=== PATIENT | female | born 1955 | race Hispanic/Latino ===

== ENCOUNTER 2017-05-22 06:37 | Day surgery (SDC) | payer MEDICARE ==
[2017-05-22] MEDS ORDERED: WATER FOR IRRIG STERILE IR ONE (07:20)
--- NOTE | 2017-05-22 08:03 | Anesthesia Day of Surgery ---
Anesthesia Day of Surgery - Day of Surgery Patient Examined: Yes Patient H&P Reviewed: Yes Patient is NPO: Yes Beta Blockers: No Cardiac Clearance: No Pulmonary Clearance: No
--- NOTE | 2017-05-22 08:04 | Anesthesia Consultation ---
Anesthesia Consult and Med Hx - Airway Anesthetic Teeth Evaluation: Good ROM Head & Neck: Adequate Mental/Hyoid Distance: Adequate Mallampati Class: Class III Intubation Access Assessment: Good - Pulmonary Exam CTA: Yes - Cardiac Exam Cardiac Exam: No Murmur - Pre-Operative Health Status ASA Pre-Surgery Classification: ASA3 Proposed Anesthetic Plan: MAC - Pulmonary Hx Smoking: No Hx Asthma: No Hx Respiratory Symptoms: No SOB: No COPD: No Home Oxygen Therapy: No Hx Pneumonia: No Hx Sleep Apnea: Yes - Cardiovascular System Hx Cardia Arrhythmia: No Hx Pacemaker: No Hx Internal Defibrillator: No Hx Valvular Heart Disease: No Hx Heart Murmur: No Hx Peripheral Vascular Disease: No - Central Nervous System Hx Neuromuscular Disorder: No Hx Seizures: No CVA: No Hx Psychiatric Problems: Yes - Gastrointestinal Hx Ulcer: No Hx Gastroesophageal Reflux Disease: Yes - Endocrine Hx Renal Disease: No Hx End Stage Renal Disease: No Hx Cirrhosis: No Hx Liver Disease: No Hx Insulin Dependent Diabetes: No Hx Non-Insulin Dependent Diabetes: No Hx Thyroid Disease: No Hx Hypothyroidism: Yes Hx Hyperthyroidism: No - Hematic Hx Anemia: No Hx Sickle Cell Disease: No - Other Systems Hx Alcohol Use: No Hx Substance Use: No Hx Cancer: No Hx Obesity: Yes
[2017-05-22] MEDS ORDERED: NACL 0.9% 1000 ML 1,000 ML IV SCH ×2 (09:00→10:00)
[2017-05-22] MEDS ORDERED: DIPRIVAN 10 MG/ML IV ONE ×2 (11:04→11:34)
--- NOTE | 2017-05-22 11:33 | Post Anesthesia Evaluation ---
- Post Anesthesia Evaluation Patient Participated: Yes Airway Patent: Yes Stable Respiratory Function: Yes Nausea/Vomiting: No Temp > 96.8F: Yes Pain Manageable: Yes Adequeate Hydration: Yes
[2017-05-22 11:38] VITALS: BP 121/52
== END 2017-05-22 06:38 | disposition home or self-care (01) ==
LOC: GIO 06:37
PROVIDERS: ATTEND Specialist
DX: K21.9 Gastro-esophageal reflux disease without esophagitis (principal); K44.9 Diaphragmatic hernia without obstruction or gangrene; G47.30 Sleep apnea, unspecified; E66.9 Obesity, unspecified; E66.01 Morbid (severe) obesity due to excess calories; Z90.49 Acquired absence of other specified parts of digestive tract; E07.9 Disorder of thyroid, unspecified; K58.9 Irritable bowel syndrome, unspecified; F32.9 Major depressive disorder, single episode, unspecified; M19.90 Unspecified osteoarthritis, unspecified site; E03.9 Hypothyroidism, unspecified; F41.9 Anxiety disorder, unspecified; Z90.710 Acquired absence of both cervix and uterus; Z98.890 Other specified postprocedural states; Z82.49 Family history of ischemic heart disease and other diseases of the circulatory system; Z80.9 Family history of malignant neoplasm, unspecified; Z79.899 Other long term (current) drug therapy; Z88.8 Allergy status to other drugs, medicaments and biological substances; Z68.41 Body mass index [BMI] 40.0-44.9, adult; M54.5 Low back pain; E78.5 Hyperlipidemia, unspecified; G47.33 Obstructive sleep apnea (adult) (pediatric)
CPT/HCPCS: 43235; 88305; 88342; J2704; J7030

== ENCOUNTER 2017-08-04 19:31 | Emergency (ER) | payer MEDICARE ==
[2017-08-04 20:36] LABS: Basophils # (Auto) 0.1 K/mm3 (0.0-0.1); Basophils % (Auto) 0.9 % (0.0-1.8); Eosinophils # (Auto) 0.3 K/mm3 (0.0-0.4); Eosinophils % (Auto) 3.8 % (0.0-4.3); Lymphocytes # (Auto) 2.5 K/mm3 (1.2-5.4); Lymphocytes % (Auto) 35.1 % (13.4-35.0); Mean Corpuscular HGB Conc 32 % (30-34); Mean Corpuscular Volume 76 fl (79-97); Monocytes # (Auto) 0.5 K/mm3 (0.0-0.8); Monocytes % (Auto) 7.4 % (0.0-7.3); Platelet Count 244 K/mm3 (140-440); Red Cell Distribution Width 13.9 % (13.2-15.2)
[2017-08-04 20:37] LABS: Mean Corpuscular Hemoglobin 24 pg (28-32)
[2017-08-04 20:42] LABS: Alanine Aminotransferase 13 units/L (7-56); Albumin 3.9 g/dL (3.9-5); BUN/Creatinine Ratio 16; Blood Urea Nitrogen 11 mg/dL (7-17); Calcium 9.1 mg/dL (8.4-10.2); Hemolysis Index 0; Lipase 27 units/L (13-60)
[2017-08-04 20:45] LABS: Bilirubin,Urine NEG (Negative); Blood,Urine NEG (Negative); Color,Urine Yellow (Yellow); Mucus,Urine FEW /HPF; Protein,Urine <15 mg/dL mg/dL (Negative); WBC,Urine < 1.0 /HPF (0.0-6.0)
[2017-08-04] MEDS ORDERED: MORPHINE IV ONE (22:14)
[2017-08-04] MEDS ORDERED: ZOFRAN IV ONE (22:14)
--- NOTE | 2017-08-04 22:20 | Emergency Department Report ---
ED Abdominal Pain HPI - General Chief Complaint: Abdominal Pain Stated Complaint: HERNIAS Time Seen by Provider: 08/04/17 21:59 Source: patient Mode of arrival: Ambulatory Limitations: No Limitations - History of Present Illness Initial Comments: 61-year-old female with a past medical history of GERD and multiple abdominal surgeries including breast surgery, appendectomy, cholecystectomy, 3/4 small bowel removal secondary to "blood clot in gangrene", hysterectomy, and gastric sleeve surgery presents to the Hospital complaining of right lower abdominal pain 2 week with nausea and constipation. Patient had a small bowel movement yesterday. Pain is rated 7/10 intensity, constant, worse with palpation, no alleviating. Pt is not currently taking any pain medication. Positive nausea with vomiting and mild dysuria reported. Patient states that Dr Bennett, her bariatric surgeonis awaiting insurance approval to repair her "hiatal" hernia and modify her gastric sleeve surgery. - Related Data Home Medications Medication Instructions Recorded Confirmed Last Taken Citalopram 20 mg PO DAILY 05/21/17 05/22/17 05/21/17 09:00 Furosemide 20 mg PO PRN PRN 05/21/17 05/21/17 Unknown Gabapentin 100 mg PO TID 05/21/17 05/22/17 05/21/17 21:00 Levothyroxine 112 mcg PO DAILY 05/21/17 05/22/17 05/22/17 06:00 NexIUM 40 mg PO DAILY 05/21/17 05/22/17 05/21/17 09:00 Pravastatin 20 mg PO DAILY 05/21/17 05/22/17 05/21/17 21:00 Xanax 0.25 mg PO PRN PRN 05/21/17 05/21/17 Unknown buPROPion 150 mg PO BID 05/21/17 05/22/17 05/21/17 21:00 Previous Rx's Medication Instructions Recorded Last Taken Type Lactulose [Kristalose] 20 gm PO QDAY #5 packet 08/05/17 Unknown Rx Allergies Allergy/AdvReac Type Severity Reaction Status Date / Time Penicillins Allergy Intermediate Unknown Verified 05/22/17 07:25 ED Review of Systems ROS: Stated complaint: HERNIAS Other details as noted in HPI Comment: All other systems reviewed and negative ED Past Medical Hx - Past Medical History Hx GERD: Yes Hx Liver Disease: No Hx Renal Disease: No Hx Sickle Cell Disease: No Hx Seizures: No Hx Asthma: No Hx COPD: No Additional medical history: Abdominal Hernias - Surgical History Hx Pacemaker: No Hx Internal Defibrillator: No Hx Cholecystectomy: Yes () Hx Appendectomy: Yes Hx Breast Surgery: Yes (2004) Additional Surgical History: Gastric Sleeve, Hysterectomy, 3/4 small bowel removal secondary to gangrene/blood clot as per patient - Social History Smoking Status: Never Smoker Substance Use Type: None - Medications Home Medications: Home Medications Medication Instructions Recorded Confirmed Last Taken Type Citalopram 20 mg PO DAILY 05/21/17 05/22/17 05/21/17 09:00 History Furosemide 20 mg PO PRN PRN 05/21/17 05/21/17 Unknown History Gabapentin 100 mg PO TID 05/21/17 05/22/17 05/21/17 21:00 History Levothyroxine 112 mcg PO DAILY 05/21/17 05/22/17 05/22/17 06:00 History NexIUM 40 mg PO DAILY 05/21/17 05/22/17 05/21/17 09:00 History Pravastatin 20 mg PO DAILY 05/21/17 05/22/17 05/21/17 21:00 History Xanax 0.25 mg PO PRN PRN 05/21/17 05/21/17 Unknown History buPROPion 150 mg PO BID 05/21/17 05/22/17 05/21/17 21:00 History Lactulose [Kristalose] 20 gm PO QDAY #5 packet 08/05/17 Unknown Rx ED Physical Exam - General Limitations: No Limitations - Other Other exam information: General: No limitations, patient is alert in no acute distress Head exam: Atraumatic, normocephalic Eyes exam: Normal appearance ENT: Moist mucous membrane, normal oropharynx Neck exam: Normal inspection, full range of motion Respiratory exam: Clear to auscultation bilateral, no wheezes, rales, crackles Cardiovascular: Normal rate and rhythm, normal heart sounds Abdomen: Soft, nondistended, also abdominal scars previous surgeries. Right mid and lower abdominal tenderness to palpation, with normal bowel sounds, no rebound, or guarding Extremity: Full range of motion normal inspection no deformity Back: Normal Inspection, full range of motion, no tenderness Neurologic: Alert, oriented x3, cranial nerves intact, no motor or sensory deficit Psychiatric: normal affect, normal mood Skin: Warm, dry, intact ED Course Vital Signs 08/04/17 08/04/17 08/04/17 19:30 22:37 22:45 Temperature 98.0 F Pulse Rate 56 L Respiratory 18 Rate Blood Pressure 149/61 147/61 O2 Sat by Pulse 99 99 99 Oximetry 08/04/17 08/04/17 08/04/17 23:00 23:15 23:30 Temperature Pulse Rate Respiratory Rate Blood Pressure 138/61 138/61 141/66 O2 Sat by Pulse 98 100 98 Oximetry 08/04/17 08/04/17 23:48 23:58 Temperature Pulse Rate Respiratory 20 Rate Blood Pressure O2 Sat by Pulse 98 98 Oximetry - Consultations Consultation #1: 08/05/17 02:15 case d/w Dr Maldonado, if pt can tolerate po rec laxatives and enema and outpatient f/u ED Medical Decision Making - Lab Data Result diagrams: 08/04/17 19:50 08/04/17 19:50 Lab Results 08/04/17 08/04/17 08/04/17 Range/Units 19:50 19:50 20:27 WBC 7.1 (4.5-11.0) K/mm3 RBC 5.40 H (3.65-5.03) M/mm3 Hgb 13.0 (10.1-14.3) gm/dl Hct 41.0 (30.3-42.9) % MCV 76 L (79-97) fl MCH 24 L (28-32) pg MCHC 32 (30-34) % RDW 13.9 (13.2-15.2) % Plt Count 244 (140-440) K/mm3 Lymph % (Auto) 35.1 H (13.4-35.0) % [place] % (Auto) 7.4 H (0.0-7.3) % Eos % (Auto) 3.8 (0.0-4.3) % Baso % (Auto) 0.9 (0.0-1.8) % Lymph # 2.5 (1.2-5.4) K/mm3 [place] # 0.5 (0.0-0.8) K/mm3 Eos # 0.3 (0.0-0.4) K/mm3 Baso # 0.1 (0.0-0.1) K/mm3 Seg Neutrophils % 52.8 (40.0-70.0) % Seg Neutrophils # 3.7 (1.8-7.7) K/mm3 Sodium 141 (137-145) mmol/L Potassium 5.1 H (3.6-5.0) mmol/L Chloride 103.0 (98-107) mmol/L Carbon Dioxide 26 (22-30) mmol/L Anion Gap 17 mmol/L BUN 11 (7-17) mg/dL Creatinine 0.7 (0.7-1.2) mg/dL Estimated GFR > 60 ml/min BUN/Creatinine Ratio 16 % Glucose 88 (65-100) mg/dL Calcium 9.1 (8.4-10.2) mg/dL Total Bilirubin 0.30 (0.1-1.2) mg/dL AST 17 (5-40) units/L ALT 13 (7-56) units/L Alkaline Phosphatase 132 H (35-129) units/L Total Protein 6.4 (6.3-8.2) g/dL Albumin 3.9 (3.9-5) g/dL Albumin/Globulin Ratio 1.6 % Lipase 27 (13-60) units/L Urine Color Yellow (Yellow) Urine Turbidity Clear (Clear) Urine pH 7.0 (5.0-7.0) Ur Specific [place] 1.017 (1.003-1.030) Urine Protein <15 mg/dl (Negative) mg/dL Urine Glucose (UA) Neg (Negative) mg/dL Urine Ketones Neg (Negative) mg/dL Urine Blood Neg (Negative) Urine Nitrite Neg (Negative) Urine Bilirubin Neg (Negative) Urine Urobilinogen 4.0 (<2.0) mg/dL Ur Leukocyte Esterase Neg (Negative) Urine WBC (Auto) < 1.0 (0.0-6.0) /HPF Urine RBC (Auto) 1.0 (0.0-6.0) /HPF U Epithel Cells (Auto) < 1.0 (0-13.0) /HPF Urine Mucus Few /HPF - Radiology Data Radiology results: report reviewed EXAM: CT ABDOMEN PELVIS W CON HISTORY: right lower pain, gastric bypass, appy, chol, hyst COMPARISON: None available. TECHNIQUE: Contiguous axial images were obtained. Additional sagittal and coronal reformatted images were obtained. Administration of IV contrast given per institution protocol. Images submitted for interpretation. Enteric contrast administered. FINDINGS: Mild linear atelectasis at the lung bases. Tiny hiatal hernia. Prior gastric sleeve procedure. Prior cholecystectomy. The common bile duct at the level the pancreatic head measures 6 millimeters within normal limits for patient's age. Homogeneous enhancement of the liver, spleen, pancreas. No adrenal mass. No solid renal lesion or hydronephrosis. Mild extrarenal pelves bilaterally. Aorta and IVC are normal in caliber. Mild calcification aorta. Urinary bladder is unremarkable. Uterus is surgically absent. Ovaries are not visualized and may also be surgically absent. Large and small bowel loops normal in caliber. The appendix is not visualized appears to be surgically absent. Moderate to large amount of stool in the colon. [id number] degenerative changes of the lumbar spine. Chronic appearing mild superior plate compression deformity at the L1 level. Bony pelvis is grossly intact. IMPRESSION: No focal inflammatory changes of the abdomen and pelvis. Moderate large amount of stool within the colon. Large and small bowel loops normal in caliber. The appendix is not visualized and appears to be surgically absent. No obstructive uropathy. Prior cholecystectomy and gastric sleeve procedure. No eliezer biliary dilatation. - Medical Decision Making Patient received a Fleet enema without output. Pt received po lactulose. Prior to CAT scan report patient received IV morphine and Zofran. - Differential Diagnosis obstruction, hernia, adhesions, UTI, bowel infection Critical Care Time: No Critical care attestation.: If time is entered above; I have spent that time in minutes in the direct care of this critically ill patient, excluding procedure time. ED Disposition Clinical Impression: Constipation, Hx of abdominal surgery, Hx of gastric bypass Disposition: DC-01 TO HOME OR SELFCARE Is pt being admited?: No Does the pt Need Aspirin: No Condition: Stable Instructions: Constipation (ED) Additional Instructions: Take the medication as prescribed. Return if symptoms worsen as indicated by the discharge instructions. Follow-up with your gastric bypass surgeon. Prescriptions: Lactulose [Kristalose] 20 gm PO QDAY #5 packet Referrals: NINO LAUREANO MD [Primary Care Provider] - 3-5 Days CLAUDIA BENNETT MD [Staff Physician] - 2-3 Days Time of Disposition: 03:08
--- NOTE | 2017-08-05 01:42 | Cat Scan Report ---
FINAL REPORT EXAM: CT ABDOMEN PELVIS W CON HISTORY: right lower pain, gastric bypass, appy, chol, hyst COMPARISON: None available. TECHNIQUE: Contiguous axial images were obtained. Additional sagittal and coronal reformatted images were obtained. Administration of IV contrast given per institution protocol. Images submitted for interpretation. Enteric contrast administered. FINDINGS: Mild linear atelectasis at the lung bases. Tiny hiatal hernia. Prior gastric sleeve procedure. Prior cholecystectomy. The common bile duct at the level the pancreatic head measures 6 millimeters within normal limits for patient's age. Homogeneous enhancement of the liver, spleen, pancreas. No adrenal mass. No solid renal lesion or hydronephrosis. Mild extrarenal pelves bilaterally. Aorta and IVC are normal in caliber. Mild calcification aorta. Urinary bladder is unremarkable. Uterus is surgically absent. Ovaries are not visualized and may also be surgically absent. Large and small bowel loops normal in caliber. The appendix is not visualized appears to be surgically absent. Moderate to large amount of stool in the colon. [id number] degenerative changes of the lumbar spine. Chronic appearing mild superior plate compression deformity at the L1 level. Bony pelvis is grossly intact. IMPRESSION: No focal inflammatory changes of the abdomen and pelvis. Moderate large amount of stool within the colon. Large and small bowel loops normal in caliber. The appendix is not visualized and appears to be surgically absent. No obstructive uropathy. Prior cholecystectomy and gastric sleeve procedure. No eliezer biliary dilatation.
[2017-08-05] MEDS ORDERED: CEPHULAC PO ONE (01:57)
[2017-08-05] MEDS ORDERED: FLEET MINERAL OIL PR ONE (02:04)
[2017-08-05 04:39] VITALS: BP 122/41
== END 2017-08-05 04:40 | disposition home or self-care (01) ==
LOC: ED 19:31
DX: K59.00 Constipation, unspecified (principal); K21.9 Gastro-esophageal reflux disease without esophagitis; Z90.710 Acquired absence of both cervix and uterus; Z90.49 Acquired absence of other specified parts of digestive tract; Z88.0 Allergy status to penicillin
CPT/HCPCS: 36415; 74177; 80053; 81001; 83690; 85025; 96374; 96375; 99284; J2270; J2405; Q9967

== ENCOUNTER 2017-10-30 07:00 | Inpatient (IN) | payer MEDICARE ==
--- NOTE | 2017-10-25 13:35 | Anesthesia Consultation ---
Anesthesia Consult and Med Hx Date of service: 10/25/17 - Airway Anesthetic Teeth Evaluation: Partials ROM Head & Neck: Adequate Mental/Hyoid Distance: Adequate Mallampati Class: Class II Intubation Access Assessment: Probably Good - Pulmonary Exam CTA: Yes - Cardiac Exam Cardiac Exam: RRR - Pre-Operative Health Status ASA Pre-Surgery Classification: ASA3 Proposed Anesthetic Plan: General - Pulmonary Hx Smoking: No Hx Asthma: No COPD: No Hx Sleep Apnea: Yes (CPAP 9cmH2O) - Cardiovascular System Hx Hypertension: No Hx Heart Attack/AMI: No Hx Cardia Arrhythmia: No Hx Pacemaker: No Hx Internal Defibrillator: No - Central Nervous System Hx Neuromuscular Disorder: No Hx Seizures: No CVA: No Hx Psychiatric Problems: Yes (anxiety/depression) - Gastrointestinal Hx Ulcer: No Hx Gastroesophageal Reflux Disease: Yes (symptoms improved significantly with nexium) - Endocrine Hx Renal Disease: No Hx Liver Disease: No Hx Insulin Dependent Diabetes: No Hx Hypothyroidism: Yes - Other Systems Hx Obesity: Yes - Additional Comments Anesthesia Medical History Comments: PMH previous gastric sleeve, GERD well controlled with nexium, CORAZON + CPAP, hypothyroidism, peripheral neuropathy presenting for revision of gastric sleeve. Pulmonary and cardiology clearance letters on chart however supporting study results pending. Cardiac, pulmonary, and lab studies from outside providers have been requested.
[~2017-10-30 07:00] MED LIST: APRESOLINE IV PRN; DILAUDID IV PRN; LACTATED RINGERS 1,000 ML IV SCH; LEVAQUIN 500MG/100ML 500 MG/100 ML BAG IV NR; LOVENOX SUB-Q NR; MYLICON PO PRN; NORCO PO PRN; VANCOMYCIN/NS 1 GM/250 ML 1 GM/250 ML BAG IV SCH; ZOFRAN IV PRN
[2017-10-30] MEDS ORDERED: TRANSDERM-SCOP TD NR (11:08)
[2017-10-30] MEDS: LACTATED RINGERS 1,000 ML IV SCH ×2 (11:15→22:00)
[2017-10-30] MEDS: VERSED IV NR ×2 (11:20→12:20)
[2017-10-30] MEDS: TRANSDERM-SCOP TD SCH ×2 (11:32→20:33)
[2017-10-30] MEDS ORDERED: DIPRIVAN 10 MG/ML IV ONE ×2 (11:57→13:15)
[2017-10-30] MEDS ORDERED: SUBLIMAZE ONE (11:57)
[2017-10-30] MEDS ORDERED: ZEMURON IV ONE ×2 (11:57→14:35)
[2017-10-30] MEDS ORDERED: XYLOCAINE MPF 2% ONE (11:57)
[2017-10-30] MEDS ORDERED: ZOFRAN ONE (11:57)
[2017-10-30] MEDS ORDERED: DECADRON ONE (11:57)
[2017-10-30] MEDS ORDERED: TORADOL ONE (11:57)
[2017-10-30] MEDS ORDERED: DILAUDID ONE (13:05)
[2017-10-30] MEDS ORDERED: MARCAINE-EPI 0.25%-1:200,000 INFILTRATI ONE (13:25)
[2017-10-30] MEDS ORDERED: XYLOCAINE 1% 20 mL ONE (13:25)
[2017-10-30] MEDS ORDERED: MARCAINE-EPI 0.5%-1:200,000 INFILTRATI ONE ×2 (13:27→14:35)
[2017-10-30] MEDS ORDERED: NACL 0.9% IR ONE (14:35)
[2017-10-30] MEDS ORDERED: NACL 0.9% 1000 ML IR ONE (14:35)
[2017-10-30] MEDS ORDERED: XYLOCAINE 1% 20 mL INFILTRATI ONE (14:35)
[2017-10-30] MEDS ORDERED: BLOXIVERZ ONE (15:03)
[2017-10-30] MEDS ORDERED: ROBINUL ONE ×2 (15:03)
--- NOTE | 2017-10-30 15:39 | Operative Report ---
Operative Report Operative Report: DATE OF PROCEDURE 10/30/17 PREOPERATIVE DIAGNOSES: 1. Symptomatic hiatal hernia 2. Gastritis 3. Morbid obesity status post band removal converted to sleeve. POSTOPERATIVE DIAGNOSES: same. SURGEON: Mono Bennett MD ELECTRICAL CONTROLS TECHNICIAN: uSri Monsivais MD, Moisés Silva CSA PROCEDURE: 1. Laparoscopic lysis of adhesions 2. Laparoscopic repair of hiatal hernia 3. Partial gastric resection 4. Imbrication of sleeve staple line. ANESTHESIA: General. ESTIMATED BLOOD LOSS: Less than 5 mL. COMPLICATIONS: None. SPECIMEN: Partial gastrectomy. FINDINGS: 1. Moderate hiatal hernia 2. Adhesions to anterior abdominal wall 3. Dilated mliy-fundus INDICATION FOR PROCEDURE: Patient is 61 year-old female status post laparoscopic removal of band converted to sleeve in 2016. She has had epigastric pain with gastritis and an EGD demonstrated a 6cm hiatal hernia with a slightly dilated sleeve. She was recommended repair of the hiatal hernia with possible re-sleeve. The risks, complications, and alternatives were explained to the patient, informed consent was obtained. PROCEDURE IN DETAIL: The patient was taken to the operating room where she was placed in the supine position. She was given preoperative antibiotics and DVT prophylaxis, and then prepped and draped in the usual sterile fashion. After a time-out was called, a stab incision was made in the LUQ and a veress needle was inserted with insufflation to 16 mmHg. An optiview 5mm trocar was inserted in the same incision. There was no injury at the site of the veress needle. Additional 5-mm ports were placed in the right and left lateral quadrants. Adhesiolysis was first performed of the anterior abdominal wall from her multiple prior open operations. After this, a 12mm umbilical port and epigastric 5mm port were placed and additional adhesions were taken down from the undersurface of the liver to expose her gastric sleeve. A liver retractor was inserted. The patient was then repositioned in steep reverse Trendelenburg. The right and left crura were skeletonized, accentuating a moderate hiatal hernia containing a portion of mily-fundus. Omental adhesions were cleared with a Ligasure from the mily-greater curvature, and then a partial gastric resection was performed of the enlarged mily-fundus with two mead stapler loads. The prior staple line of the sleeve was noted, anesthesia placed a 36F bougie for calibration, and then the staple line was imbricated with a running 0 Surgidac suture, ensuring not to kink the incisura. Next, an anterior cruraplasty was performed with figure-of-8 0 ethibond suture to reapproximate the crura. The gastric remnant was removed via the umbilcal port. The abdomen was desulflated and all ports were removed. The fascia was closed with a #1 PDS. The incisions were closed with 4-0 Monocryl in subcuticular fashion, dressed with steristrips, gauze and tape. Patient tolerated the procedure well and was transferred to recovery room in stable condition. Counts were correct.
[2017-10-30] MEDS: MORPHINE IV PRN (15:41)
[2017-10-30] MEDS: REGLAN IV PRN (15:43)
[2017-10-30] MEDS ORDERED: DILAUDID IV PRN (16:12)
[2017-10-31] MEDS: MORPHINE IV PRN (03:05)
[2017-10-31] MEDS: REGLAN IV PRN (03:05)
--- NOTE | 2017-10-31 07:16 | Progress Note ---
Assessment and Plan 61F w/ gastritis and symptomatic HH s/p Lap ABBY, plication sleeve, hiatal hernia repair 10/30 #1 s/p lap plicatoin sleeve/ HHR - postop pain control - nausea control - discussed bariatric CLD in detail - encourage more ambulation - IS use, wean O2 to off Dispo: home today Subjective Date of service: 10/31/17 Principal diagnosis: Symptomatic hiatal hernia; gastritis Interval history: c/o some nausea with walking and difficulty w/ ice chips. Ambulated once last night. Pain tolerable. Objective - Exam Narrative Exam: GEN: AAO, NAD HEENT: atraumatic HEART: RRR LUNGS: CTAB ABD: soft, NT, ND. Bandages c/d/i. EXT: no edema - Constitutional Vitals: Vital Signs - 12hr 10/30/17 10/30/17 10/31/17 20:22 23:25 01:18 Temperature 98.4 F 99.6 F Pulse Rate 68 84 Respiratory 18 18 Rate Blood Pressure 145/67 132/55 Blood Pressure [Left] O2 Sat by Pulse 98 98 93 Oximetry 10/31/17 10/31/17 04:14 04:17 Temperature 97.3 F L 97.3 F L Pulse Rate 82 Respiratory 18 18 Rate Blood Pressure 128/49 Blood Pressure 128/49 [Left] O2 Sat by Pulse 95 Oximetry
--- NOTE | 2017-10-31 07:20 | Discharge Summary ---
Providers - Providers Date of Admission: 10/30/17 09:53 Date of discharge: 10/31/17 Attending physician: CLAUDIA FLORES Primary care physician: NINO LAUREANO Hospitalization Reason for admission: postop monitoring Condition: Good Procedures: 10/30/17: Lap ABBY, HHR, plication sleeve Hospital course: 61F admitted after operation for postop monitoring. She c/o nausea the first night, this improved in the am. Patient tolerated a bariatric CLD and was given education on postop diet and care. She was discharged home the next morning. Disposition: DC-01 TO HOME OR SELFCARE Core Measure Documentation - Palliative Care Palliative Care/ Comfort Measures: Not Applicable - Core Measures Any of the following diagnoses?: none - VTE Discharge Requirements Deep Vein Thrombosis/Pulmonary Embolism Present on Admission: No - Acute SC Discharge Requirements Aspirin at discharge: No Reason for no aspirin on DC: Surgical contraindication - Heart Failure Discharge Requirements JUAN CARLOS/ARB for LVSD if EF <40%: Not Applicable - Stroke Discharge Requirements Statin for LDL = or >70 mg/dl on DC: Not Applicable Exam - Physical Exam Narrative exam: GEN: AAO, NAD HEENT: atraumatic HEART: RRR LUNGS: CTAB ABD: soft, NT, ND. Bandages c/d/i. EXT: no edema - Constitutional Vitals: Temp Pulse Resp BP Pulse Ox 97.3 F L 82 18 128/49 95 10/31/17 04:17 10/31/17 04:17 10/31/17 04:17 10/31/17 04:17 10/31/17 04:17 Plan Activity: other (no heavy lifting > 15 lbs in 4-6 wks) Weight Bearing Status: Full Weight Bearing Diet: other (bariatric CLD) Wound: keep clean and dry Follow up with: NINO LAUREANO MD [Primary Care Provider] - 7 Days CLAUDIA FLORES MD [Staff Physician] - 14 Days (as already scheduled)
[2017-10-31] MEDS ORDERED: LOVENOX SUB-Q SCH (10:00)
[2017-10-31 10:12] LABS: Basophils % (Auto) 0.3 % (0.0-1.8); Eosinophils # (Auto) 0.1 K/mm3 (0.0-0.4); Eosinophils % (Auto) 0.6 % (0.0-4.3); Hematocrit 34.6 % (30.3-42.9); Hemoglobin 11.3 gm/dl (10.1-14.3); Lymphocytes # (Auto) 0.7 K/mm3 (1.2-5.4); Lymphocytes % (Auto) 6.1 % (13.4-35.0); Mean Corpuscular HGB Conc 33 % (30-34); Mean Corpuscular Volume 74 fl (79-97); Monocytes # (Auto) 1.1 K/mm3 (0.0-0.8); Platelet Count 208 K/mm3 (140-440); Red Blood Count 4.65 M/mm3 (3.65-5.03); Red Cell Distribution Width 14.8 % (13.2-15.2)
[2017-10-31 10:13] LABS: Mean Corpuscular Hemoglobin 24 pg (28-32)
[2017-10-31 10:29] LABS: Alanine Aminotransferase 83 units/L (7-56); Albumin 3.2 g/dL (3.9-5); BUN/Creatinine Ratio 20; Blood Urea Nitrogen 12 mg/dL (7-17); Calcium 8.5 mg/dL (8.4-10.2); Hemolysis Index 3
[2017-10-31 12:19] VITALS: BP 117/46
== END 2017-10-31 15:00 | disposition home or self-care (01) | DRG 327 ==
LOC: 3A 09:53 → 3B-SURG 15:39
PROVIDERS: ADMIT Specialist; ATTEND Specialist
PROC: 0DB64Z3 Excision of Stomach, Percutaneous Endoscopic Approach, Vertical (ICD-10-PCS; principal; 2017-10-30)
PROC: 0BQT4ZZ Repair Diaphragm, Percutaneous Endoscopic Approach (ICD-10-PCS; 2017-10-30)
DX: K44.9 Diaphragmatic hernia without obstruction or gangrene (principal); Z68.41 Body mass index [BMI] 40.0-44.9, adult; K29.70 Gastritis, unspecified, without bleeding; K21.9 Gastro-esophageal reflux disease without esophagitis; E66.01 Morbid (severe) obesity due to excess calories; F32.9 Major depressive disorder, single episode, unspecified; E03.9 Hypothyroidism, unspecified; G47.33 Obstructive sleep apnea (adult) (pediatric); G62.9 Polyneuropathy, unspecified; K58.9 Irritable bowel syndrome, unspecified; M19.90 Unspecified osteoarthritis, unspecified site; F41.9 Anxiety disorder, unspecified; Z90.710 Acquired absence of both cervix and uterus; Z90.49 Acquired absence of other specified parts of digestive tract; Z71.3 Dietary counseling and surveillance
CPT/HCPCS: 36415; 80053; 85025; 88307; 94760; J1100; J1170; J1650; J1885; J1956; J2250; J2270; J2405; J2704; J2710; J2765; J3010; J3370; J7030; J7120